=== PATIENT | male | born 1985 | race Two or more races ===

== ENCOUNTER 2018-09-09 19:29 | Emergency (ER) | payer BC, OTHER ==
[~2018-09-09] VITALS: Ht 177.8 cm; Wt 77.1 kg
[2018-09-09] MEDS: TETRACAINE HCL 0.5% OPHT DROP 2 ML BOTTLE OP ONE (20:16)
[2018-09-09] MEDS: FLUORESCEIN SODIUM 1 MG STRIP OP ONE (20:16)
[2018-09-09] MEDS ORDERED: TETRACAINE HCL 0.5% OPHT DROP 2 ML BOTTLE ONE (20:16)
[2018-09-09] MEDS ORDERED: FLUORESCEIN SODIUM 1 MG STRIP ONE (20:16)
[2018-09-09 20:23] LABS: *BILIRUBIN,URIN NEGATIVE (NEGATIVE); *BLOOD, URINE NEGATIVE (NEGATIVE); *CLARITY,URINE CLEAR (CLEAR); *COLOR,URINE YELLOW (YELLOW); *KETONES,URINE NEGATIVE (NEGATIVE); *UROBILINOGEN,URINE 0.2 E.U./dl (NORMAL); LEUKOCYTE ESTERASE ,URINE NEGATIVE (NEGATIVE); NITRITE, URINE POSITIVE (NEGATIVE); UGLUCOSE NEGATIVE (NEGATIVE)
[2018-09-09 20:31] LABS: BACTERIA,URINE FEW /HPF (NONE SEEN); RBC,URINE 0-3 /HPF (0-3); SQUAMOUS EPITHELIAL CELL,UR NONE SEEN /HPF (NONE SEEN)
--- NOTE | 2018-09-09 20:40 | NUR ---
Patient discharged to home in stable conditon. Written and verbal after care instructions given. Patient verbalizes understanding of instructions.
[2018-09-09 20:41] VITALS: BP 112/71
== END 2018-09-09 20:42 | disposition home or self-care (01) ==
LOC: ER 19:32
DX: H10.9 Unspecified conjunctivitis (principal); R30.0 Dysuria
CPT/HCPCS: 87086; A4663